=== PATIENT | female | born 1950 | race Caucasian/White ===

== ENCOUNTER 2022-11-11 12:31 | Emergency (ER) | payer MEDICARE, OTHER, SELFPAY ==
[2022-11-11 12:33] VITALS: BP 182/81; PULSE 89; RESP 18; TEMP 36.6; O2SAT 98; BMI 28.3
[2022-11-11 13:01] VITALS: BP 177/97; PULSE 81; O2SAT 98
--- NOTE | 2022-11-11 13:24 | HMH.EDGENADL ---
Discharge Plan Disposition Patient Disposition: Home, Self-Care Condition: Good Prescriptions Prescriptions: New bacitracin 500 unit/gram ointment 1 applic topical Q8H Qty: 30 0RF naproxen 500 mg tablet 500 mg PO Q12H PRN (Reason: pain) Qty: 20 0RF oxycodone 5 mg tablet 5 mg PO Q8H PRN (Reason: pain) Qty: 12 0RF Referrals Follow up/Referrals: Provider,Referral, MD [Primary Care Provider] - See instructions Activity Restrictions/Add. Instructions Additional Instructions/Restrictions: You were evaluated in the emergency department today for mcfarlane. Keep your wounds clean and dry. Apply bacitracin 3 times a day. Take your prescriptions as needed for pain. You may also take Tylenol. Do not drive or operate heavy machinery while taking narcotic pain medication. Follow-up outpatient with plastic surgery. They should be contacting you with an appointment to let you know where you need to go, as they have different locations. Their phone number is . If you do not hear from them or have difficulty getting in, follow-up with your primary care provider over the next week for a wound recheck. Return to the emergency department for any new or worsening symptoms. Clinical Impressions Clinical Impression: Burn of abdomen wall, Burn of flank Instructions Patient Instructions: DI for Mcfarlane Discharge ED Provider: Nathalie Thapa General Adult HPI General Chief complaint: Burn/Smoke Inhalation Stated complaint: AO10/4, mcfarlane on stomach Time Seen by Provider: 11/11/22 12:45 Mode of Arrival: Ambulatory Source of Information: Patient Limitations: No Limitations Description of Symptoms (Recalled from ER Triage Doc. by RN): Patient reports getting coffee at [employer] and the lid apparently wasn't on all the way so when she went to put it in her cup gray it spilled on her right side of her abdomen and buttock. Redness and blisters noted. History of Present Illness HPI narrative: This patient is a 72-year-old female presented to the emergency department for evaluation with concern for burn to the right lower abdomen/right hip/gluteal region. She reports that she had gotten hot coffee at [employer] and did not realize that the lid was not on. When she went to put it in her cup gray, it spilled on her right side. This happened a few hours prior to arrival. The pain has been significant. She has a small area of blistering. Given this, she decided to come in for evaluation. She was well prior to this. Related Data Previous Rx's Medication Instructions Recorded bacitracin 500 unit/gram topical 1 applic topical Q8H #30 grams 11/11/22 ointment naproxen 500 mg tablet 500 mg PO Q12H PRN pain #20 tabs 11/11/22 oxycodone 5 mg tablet 5 mg PO Q8H PRN pain #12 tabs 11/11/22 Allergies Allergy/AdvReac Type Severity Reaction Status Date / Time No Known Allergies Allergy Verified 11/11/22 12:46 [facility] Disclaimer: The information contained in this section may have been updated after the patient was seen, as this information can be updated by other users. Social History Smoking Status: Never smoker alcohol intake: never current occupational status: retired Travel in the last 8 weeks: None ROS Obtained: Yes All systems reviewed & no additional complaints except as documented Physical Exam General General appearance: alert and in no apparent distress Head Head exam: atraumatic and normocephalic Eye Eye exam: Present normal appearance, PERRL and EOMI ENT ENT exam: Present normal exam, normal oropharynx, mucous membranes moist and normal external ear exam Neck Neck exam: Present normal inspection, full ROM and trachea midline; Absent tenderness Chest Chest inspection: Present normal inspection and symmetric chest wall rise; Absent tenderness Respiratory Respiratory exam: Present normal lung sounds bilaterally; Absent respiratory
--- NOTE | 2022-11-11 13:36 | PC.NURSE ---
Checked on pt states no needs at this time,call light at bs
--- NOTE | 2022-11-11 13:43 | PC.NURSE ---
Dr. Thapa speaking with plastic surgery clinic for arranging f/u for pt.
[2022-11-11 14:03] VITALS: BP 159/78; PULSE 84; RESP 20; TEMP 36.6; O2SAT 97
--- NOTE | 2022-11-11 14:05 | PC.NURSE ---
Faxed pt info and dr note to [place]
== END 2022-11-11 14:07 | disposition home or self-care (01) ==
PROVIDERS: Emergency Provider Emergency Medicine
DX: T21.02XA Burn of unspecified degree of abdominal wall, initial encounter (principal); T21.05XA Burn of unspecified degree of buttock, initial encounter; X10.0XXA Contact with hot drinks, initial encounter
CPT/HCPCS: 90715; 96374; 96375; 99284

== ENCOUNTER 2024-07-27 10:33 | Emergency (ER) | payer MEDICARE, OTHER, SELFPAY ==
--- OUTSIDE RECORDS SUMMARY | 2006-03-07 20:00 | XMS_ITS | Continuity of Care Document ---
Author Organization [facility] Address [address] [place] [address] Phone Care Team Providers Care Energy Conservation Engineer Name Role Phone No Information Unavailable Unavailable Advance Directives Directive Yes / No Effective Date File Name No Information Encounters Encounter Description Practice Location Reason(s) For Visit Diagnoses Date Provider Providers Copied on Encounter [facility], [address] [place] [address], [place], [address], [place] tel:[phone] No Location No Information No Information Family History Family Member Type Diagnosis Age At Onset No Information Payers Payer name Insurance type Covered constitution party ID Authoriza tion(s) No Information Social History Type Description Quantity Date Captured Comments Sex Female Smoking Status No Information Chief Complaint And Reason For Visit No Information Reason For Referral Reason For Referral No Information History Of Present Illness Encounter Date Complaint History Of Prese nt Illness No Information Functional Status Date Functional Assessmen t No Information Instructions Date Instruction Additional Infor mation No Information Assessments Type Assessment Date No Information Patient Care Teams Name Effective Dates (start - stop) Status Members No Information
--- OUTSIDE RECORDS SUMMARY | 2024-06-28 06:31 | XMS_ITS | Continuity of Care Document ---
Author Organization [facility] Address [address] [place] [address] Phone Care Team Providers Care Power Line Installer Name Role Phone Viri Reilly MD Unavailable Unavailable Allergies, Adverse Reactions, Alerts Substance Reaction Status Criticality No Known Allergies Active No Inform ation Medications Medication Instructions Dosage Effective Dates (start - stop) Status Comments meloxicam 15 mg tablet take 1 tablet by oral route every day 15 MG - Active turmeric 400 mg capsule - Active Effexor XR 75 mg capsule,extended release take 1 capsule by oral route 2 times every day with food 75 MG - Active VITAMIN D3 (unknown strength) Not Available - Active multivitamin tablet take 1 capsule by oral route every day 1 capsule - Active Procedures Procedure Date Chemo IV Infusion 1 Hour Zoledronic Acid 1Mg X-Ray Exam Of Hand X-Ray Exam Of Hand X-Ray Of Foot X-Ray Of Foot DXA Bone Density Axial CBC Office Visit New, Level IV RBC Sed Rate Automated Urinalysis Advance Directives Directive Yes / No Effective Date File Name No Information Encounters Encounter Description Practice Location Reason(s) For Visit Diagnoses Date Provider Providers Copied on Encounter [facility], [address] [place], [place], [id number], tel:[phone] [facility] No Information [address] [facility] [facility] [place] [id number] , [place]. tel: [phone] [facility], [address] [place], [place], [id number], tel:[phone] DO NOT USE [facility] Age-related osteoporosis w/o current pathological fracture Sep-0 2 [address] [facility] [place], [id number] , [place]. tel: [phone] Referring Provider: Nura Thomas, [address] [facility] [address], [place], [address]. tel:[phone] Office Visit New, Level IV [facility], [address] [place], [place], [id number], [place] tel:[phone] DO NOT USE [facility] Body mass index (BMI) 26.0-26.9, adultPain in left handPain in right handPain in left footPain in right footAge-relat ed osteoporosis w/o current pathological fractureOther specified abnormal immunological findings in serumOther longterm (current) drug therapyLong term (current) use of non-steroidal anti-inflamma tories (NSAID)Primar y generalized (osteo)arthri tisVitamin D deficiency, unspecified 2 Fidel Garg . [address] [facility] [place], [id number] , [place]. tel: [phone] Referring Provider: Nura Thomas, [address] [facility] [address], [place], [address]. tel:[phone] Family History Family Member Type Diagnosis Age At Onset Problem No family history of Arthrit is Payers Payer name Insurance type Covered democrat ID Authorstaceya tidonnie(s) Medicare Part B ALEX [id number] [facility] [id number] Social History Type Description Quantity Date Captured Comments Alcohol Use Details Unknown Caffeine Use Details Unknown Tobacco Use Status No Information Smoking Status No Information Sex Female Chief Complaint And Reason For Visit No Information Reason For Referral Reason For Referral No Information Plan Of Treatment Date Type Action Status Goal Lifestyle educat ion regarding diet completed Future Order: Radiology Order Fo ot X-ray; Limited (2 views) ([id number]), Ordered on: Ordered Future Order: Radiology Order [place] X-ray; Limited (2 views) ([id number]), Ordered on: Ordered Future Order: Radiology Order Atif ne density study (by DEXA) ([id number]), Ordered on: Ordered History Of Present Illness Encounter Date Complaint History Of Prese nt Illness No Information Functional Status Date Functional Assessmen t No Information Instructions Date Instruction Additional Infor mation Lifestyle education regarding di et Related to Body mass index [BMI] 26.0-26.9, adult Assessments Type Assessment Date No Information Patient Care Teams Name Effective Dates (start - stop) Status Members No Information
[2024-07-27] VITALS (7 sets, daily range): BP systolic 135–191; BP diastolic 67–102; PULSE 76–96; RESP 11–19; TEMP 36.9; O2SAT 95–97; BMI 28.3
--- NOTE | 2024-07-27 10:34 | ECG_ITS ---
APPROVED REPORT Exam: Resting ECG HR:94 bpm ECG Measurements Heart Rate 94 AXES SD 174 P 33 QRSd 83 QRS -15 QT 322 T 64 QTc 374 Conclusion SINUS RHYTHM POSSIBLE LEFT ATRIAL ENLARGEMENT [-0.1mV P-WAVE IN V1/V2] BORDERLINE ECG UNCONFIRMED REPORT Electronically signed by : Pedro Luis Garrison, 07/27/2024 15:39:03
--- NOTE | 2024-07-27 10:38 | XR_ITS ---
FINAL REPORT CLINICAL HISTORY: Shortness of breath and chest pain COMPARISON: None FINDINGS: The heart size is normal. The mediastinum is normal. There is no focal infiltrate or edema. There are no pleural effusions. There is no pneumothorax. There is no osseous abnormality. IMPRESSION: No acute cardiopulmonary process Reviewed, Interpreted and Dictated by Reinier Joy MD Transcribed by Jeannine Nguyen Authenticated and [facility]
[2024-07-27 10:51] LABS: Basophils % 0.1 % (0.1-2.0); Eosinophils # 0.1 Kmm3 (0.0-0.4); Eosinophils % 0.6 % (0.1-12.0); Hemoglobin 14.5 g/dL (12.2-16.2); Immature Granulocytes # 0.03 10^3uL; Immature Granulocytes % 0.3 %; Lymphocytes # 1.8 K/mm3 (0.7-4.5); Lymphocytes % 18.5 % (10-50); Mean Corpuscular Hemoglobin 29.4 pg (27.0-31.2); Mean Corpuscular Volume 89.1 fl (81-99); Monocytes # 0.8 K/mm3 (0.1-1.0); Monocytes % 7.9 % (1.7-9.3); Neutrophils # 7.1 K/mm3 (1.8-7.8); Neutrophils % 72.6 % (37.0-80.0); Nucleated Red Blood Cells # 0 10^3/uL; Nucleated Red Blood Cells % 0 %; Platelet Count 205 K/mm3 (142-424); Red Blood Count 4.94 M/mm3 (4.20-5.40); Red Cell Distribution Width-SD 42.4 fL; White Blood Count 9.7 K/mm3 (4.8-10.8)
--- NOTE | 2024-07-27 10:54 | CT_ITS ---
FINAL REPORT TECHNIQUE: After the administration of intravenous contrast, axial images were obtained through the abdomen and pelvis by computed tomography. The study was performed with techniques to keep radiation dose as low as reasonably achievable, (ALARA). Individual dose reduction techniques using automated exposure control or adjustment of mA and/or kV according to the patient's size were employed. CLINICAL HISTORY: LLQ pain, constipation, nausea pt hx of diverticulitis COMPARISON: None FINDINGS: Abdomen: There is a benign-appearing cyst in the liver, measuring 9 mm in size. A few other small low densities are present in the liver, also likely cysts. The liver parenchyma is otherwise homogeneous and mildly enlarged, measuring 20 cm in the craniocaudal dimension. The gallbladder is present. The spleen, pancreas, adrenals and kidneys appear unremarkable. The aorta is normal in caliber. There is no free fluid or adenopathy. Pelvis: The appendix is not identified. There is a segment of sigmoid colon which contains marked mucosal thickening in the pelvis, with surrounding inflammatory reaction, consistent with acute diverticulitis or colitis. No evidence of an abscess is seen. The left ovary appears to contact the inflamed colon. The urinary bladder is unremarkable. There is no adenopathy. A trace amount of is present in the pelvis. IMPRESSION: Marked mucosal thickening in the mid sigmoid colon with surrounding inflammatory reaction, consistent with acute diverticulitis or colitis. No focal abscess is seen. Mild hepatomegaly. Reviewed, Interpreted and Dictated by Reinier Joy MD Transcribed by Jessie Melvin Authenticated and [facility]
[2024-07-27 10:58] LABS: Chloride 105 mmol/L (98-107); INR 0.98 (0.9-1.1); Prothrombin Time 10.9 seconds (10.1-12.5)
--- NOTE | 2024-07-27 10:58 | CT_ITS ---
FINAL REPORT TECHNIQUE: The patient was injected with IV contrast. Axial images were obtained through the chest in a PE protocol. 3-D reconstruction images were also performed. Individualized dose reduction techniques using automated exposure control or adjustment of the MA and/or KV according to patient's size were employed. CLINICAL HISTORY: CP, recent flight cp started wednesday, midsternal cp COMPARISON: None FINDINGS: Mediastinal vasculature is adequately opacified. No pulmonary artery filling defects are identified to suggest PE. There is no aortic dissection. The ascending thoracic aorta measures 3.8 cm in diameter. There is no axillary adenopathy. There is no hilar or mediastinal adenopathy. The heart size is normal. There is no pericardial or pleural effusion. Limited images of the upper abdomen are unremarkable. Bilateral bulla are present in the apices, measuring up to 3.7 cm in diameter. There are mild ground glass opacities noted bilaterally, that may represent mild edema or pneumonitis. IMPRESSION: No pulmonary embolus or dissection. Bullous changes are present, along with mild ground glass opacities bilaterally, that may represent mild edema or pneumonitis. Reviewed, Interpreted and Dictated by Reinier Joy MD Transcribed by Jessie Melvin Authenticated and [facility]
[2024-07-27 10:59] LABS: Albumin Level 4.5 g/dl (3.5-5.0); Potassium 3.7 mmoL/L (3.5-5.1); Sodium 139 mmol/L (136-145)
[2024-07-27 11:01] LABS: Alanine Aminotransferase 21 U/L (12-78); Alkaline Phosphatase 100 U/L (38-126); Anion Gap 11.7 mEq/L (5-15); Aspartate Amino Transferase 30 U/L (14-36); Bilirubin,Total 1.1 mg/dl (0.2-1.3); Blood Urea Nitrogen 9 mg/dl (7-17); Carbon Dioxide 26 mmol/L (22.0-30.0); Creatinine Clearance Estimated 58 mL/min (50-200); Estimated Glomerular Filt Rate 82 ml/min (>60); GFR (African American) 100 ML/MIN (>60)
[2024-07-27 11:02] LABS: Albumin/Globulin Ratio 1.2 (1.1-1.8); Calcium 9.3 mg/dl (8.4-10.2); Globulin 3.7 g/dL (1.3-3.2); Glucose 113 mg/dl (74-100); Lipase 43 U/L (23-300); Magnesium 1.9 mg/dl (1.6-2.3); Total Protein,Serum 8.2 g/dl (6.3-8.2)
--- NOTE | 2024-07-27 11:03 | ED_ITS ---
<Statement entered by Lisa Garrison MD - 07/27/24 15:34> I was consulted by the YAMEL, and we discussed the complexity of the problems being addressed. I approved the treatment and management plan for this patient's care in the emergency department, thus performing a substantive portion of the medical decision making. Lisa Garrison MD, CRISELDA, FACEP Discharge Plan Disposition Patient Disposition: Home, Self-Care Condition: Good Prescriptions Prescriptions: New amoxicillin-pot clavulanate 875-125 mg tablet 1 tab PO BID 5 Days Qty: 10 0RF ondansetron 4 mg tablet,disintegrating 4 mg PO Q6H PRN (Reason: nausea and vomiting) Qty: 14 0RF No Action bacitracin 500 unit/gram ointment 1 applic topical Q8H Qty: 30 0RF naproxen 500 mg tablet 500 mg PO Q12H PRN (Reason: pain) Qty: 20 0RF oxycodone 5 mg tablet 5 mg PO Q8H PRN (Reason: pain) Qty: 12 0RF Referrals Follow up/Referrals: Provider,Referral, [Primary Care Provider, Medical] - See instructions Activity Restrictions/Add. Instructions Additional Instructions/Restrictions: Please return to the emergency department with any worsening signs or symptoms, please take your medication as prescribed, recommend progress diet as tolerated, lease follow-up with your family doctor. Clinical Impressions Clinical Impression: Diverticulitis Instructions Patient Instructions: DI for Diverticulitis Print Language Print Language: Cook Islander Discharge ED Provider: Lisa Garrison [facility] General Chief Complaint: Chest Pain Stated Complaint: Chest Pain Time Seen by Provider: 07/27/24 10:36 Mode of Arrival: Ambulatory Source of Information: Patient Description of Symptoms (Recalled from ER Triage Doc. by RN): pt presents to the ED with chest pain. pt states the pain is stabbing in the center of her chest. The pain started Wednesday but pt reports it has gotten a little better today. The pain gets worse with breathing and after she eats. Pt has taken over the counter medications but has had no relief. pt states that she's had a lot going on lately and is anxious. pt hx of diverticulitis. pt has lower left abdominal pain. pt states she feels like is constipated. History of Present Illness HPI narrative: 73-year-old female presents to the emergency department with a 2-day history of substernal chest pain with some radiation to the left shoulder, now with radiation down into the left side of the abdomen, somewhat worse with movement. When the pain for started it was a 9 out of 10 , like a 4 out of 10 , she utilized Tums , with some relief to her symptomatology, endorses nausea and constipation yesterday as last bowel movement was actually 2 days ago, has remote history of diverticulosis, denies any fever chills cough congestion, denies any shortness of breath currently, when the pain does hit her she does endorse some shortness of breath, patient states that she is quite anxious, she denies any diarrhea, melena, hematochezia hemoptysis, hematemesis, or hematuria, denies vomiting, denies any urinary type symptomatology. Patient has other past medical history consistent with hyperlipidemia, anxiety/depression, initial triage vitals are unremarkable, she denies any history of tobacco use, admits to occasional alcohol use, denies any other drug use. Related Data Previous Rx's ?Medication ?Instructions ?Recorded bacitracin 500 unit/gram topical 1 applic topical Q8H #30 grams 11/11/22 ointment naproxen 500 mg tablet 500 mg PO Q12H PRN pain #20 tabs 11/11/22 oxycodone 5 mg tablet 5 mg PO Q8H PRN pain #12 tab s 11/11/22 amoxicillin 875 mg-potassium 1 tab PO BID 5 days #10 t abs 07/27/24 clavulanate 125 mg tablet ondansetron 4 mg disintegrating 4 mg PO Q6H PRN nausea and 07/27/24 tablet vomiting #14 tabs Allergies Allergy/AdvReac Type Severity Reaction Status Date / Time No Known Allergies Allergy Verified 11/11/22 12:46 [facility] Disclaimer: The information contained in this section may have been updated after the patient was seen, as this information can be updated by other users. Social History Smoking Status: Never smoker alcohol intake: never current occupational status: retired Travel in the last 8 weeks?: None Have you lived/traveled outside US in past 30 days?: No Contact w/someone who lives/traveled outside US past 30 days?: No Exposure to someone with infectious disease in past 14 days?: No Do you have a fever (greater than 100.4 F or 38 C)?: No Have you tested positive for COVID-19?: No Exposed to someone with COVID-19 in past 14 days?: No Do you have a sore throat?: No Do you have a cough?: No Do you have any weakness?: No Do you have any diarrhea?: No Are you experiencing any unusual bleeding?: No Do you have any muscle aches/pain?: No Do you have any abdominal pain?: No Are you experiencing loss of taste or smell?: No ROS Obtained: Yes All systems reviewed & no additional complaints except as documented Physical Exam General General appearance: alert and in no apparent distress Head Head exam: atraumatic and normocephalic Eye Eye exam: Present PERRL and EOMI ENT ENT exam: Present mucous membranes moist Neck Neck exam: Present normal inspection Chest Chest inspection: Present normal inspection and symmetric chest wall rise Respiratory Respiratory exam: Present normal lung sounds bilaterally; Absent respiratory distress, wheezes or stridor Cardiovascular Cardiovascular exam: Present regular rate and normal rhythm Abdominal Exam Abdominal exam: Present soft and tenderness Abdominal tenderness: Present LLQ, epigastrium and mild Extremities Exam Extremities exam: Present normal inspection Neurological Exam Neurological exam: Present alert and oriented X3 Psychiatric Psychiatric exam: Present normal affect Skin Skin exam: Present warm and dry HEART Score HEART Score HEART Score assessment performed?: Yes HEART Score: 3 Critical Care Critical Care Time Critical Care Time: No Medical Decision Making Medical Records Medical records reviewed: Yes I reviewed the patient's medical records. Gary Inquiry Pt receiving controlled substance: No Gary was queried for this patient: No Vital Signs Vital Signs: 07/27/24 10:41 07/27/24 10:50 07/27/24 10:51 Temperature 98.4 F 98.4 F Temperature Source Oral Oral Pulse Rate 96 H 96 H Pulse Rate [Right] 96 H Respiratory Rate 19 19 Blood Pressure 191/102 H Blood Pressure [Right Arm] 191/102 H Blood Pressure Mean [Right Arm] 131 Blood Pressure Source Automatic Cuff Blood Pressure Source [Right Arm] Automatic Cuff Blood Pressure Position Supine Blood Pressure Position [Right Arm] Supine 02 Sat by Pulse Oximetry 97 97 Oxygen Delivery Method Room Air Room Air 07/27/24 11:01 07/27/24 12:01 Temperature Temperature Source Pulse Rate 90 80 Pulse Rate [Right] Respiratory Rate 11 L 12 Blood Pressure 139/67 135/76 Blood Pressure [Right Arm] Blood Pressure Mean [Right Arm] Blood Pressure Source Blood Pressure Source [Right Arm] Blood Pressure Position Blood Pressure Position [Right Arm] 02 Sat by Pulse Oximetry 95 97 Oxygen Delivery Method Room Air Lab Data Lab results reviewed: Yes I reviewed the patient's lab results. Labs: Lab Results 07/27/24 10:40: WBC 9.7, RBC 4.94, Hgb 14.5, Hct 44.0, MCV 89.1, MCH 29.4, MCHC 33.0, RDW 13.0, Plt Count 205, MPV 10.0, Neut % (Auto) 72.6, Lymph % (Auto) 18.5, [place] % (Auto) 7.9, Eos % (Auto) 0.6, Baso % (Auto) 0.1, Neut # (Auto) 7.1, Lymph # (Auto) 1.8, [place] # (Auto) 0.8, Eos # (Auto) 0.1, Baso # (Auto) 0.0, PT 10.9, INR 0.98, D-Dimer 0.98 H, Sodium 139, Potassium 3.7, Chloride 105, Carbon Dioxide 26, Anion Gap 11.7, BUN 9, Creatinine 0.70, Estimated Creat Clear 58, Estimated GFR 82, Est GFR ( Amer) 100, Glucose 113 H, Calcium 9.3, Magnesium 1.9, Total Bilirubin 1.1, AST 30, ALT 21, Alkaline Phosphatase 100, Troponin I < 0.01, NT-Pro-B Natriuret Pep 65.4, Total Protein 8.2, Albumin 4.5, Globulin 3.7 H, Albumin/Globulin Ratio 1.2, Lipase 43, HCV Ab JUAN M w/Rflx PCR Qn Negative, HIV Ag/Ab Combo Qual Negative 07/27/24 11:01: Lactate 0.9 07/27/24 10:40 07/27/24 10:40 Response Orders (Tests/Meds): ED MEDICATIONS Discontinued Medications Generic Name Dose Route Start Last Admin Trade Name Freq PRN Reason Stop Dose Admin Iopamidol 70 ml 07/27/24 11:11 07/27/24 11:14 Iopamidol-370 (76%);100ml Bottle IV 07/27/24 11:12 70 ml ONCE ONE Administration Morphine Sulfate 4 mg 07/27/24 11:01 07/27/24 11:10 Morphine 4mg/Ml Syringe IV 07/27/24 11:02 Not Given ONCE ONE Ondansetron HCl 4 mg 07/27/24 11:01 07/27/24 11:07 Ondansetron 4mg/2ml Vial IV 07/27/24 11:02 4 mg ONCE ONE Administration Sodium Chloride 10 ml 07/27/24 11:11 07/27/24 11:14 Sodium Chloride 0.9% 10ml Syr (Rad Only) IV 07/27/24 11:12 10 ml ONCE ONE Administration Sodium Chloride 50 ml 07/27/24 11:11 07/27/24 11:14 0.9 % Sodium Chloride 50 Ml Vial IV 07/27/24 11:12 50 ml ONCE ONE Administration ORDERS Category Date Time Status CT abdomen pelvis w con Stat Cat Scan 07/27/24 10:[address] angio chest PE protocol Stat Cat Scan 07/27/24 10:58 Completed XR chest portable Stat Exams 07/27/24 10:38 Completed Complete Blood Count Auto Diff Stat Lab 07/27/24 10:40 Completed Comprehensive Metabolic Panel Stat Lab 07/27/24 10:40 Completed D-Dimer Stat Lab 07/27/24 10:40 Completed HIV Combo Stat Lab 07/27/24 10:40 Completed Hepatitis C Ab Qual. W/ RFX Stat Lab 07/27/24 10:40 Completed Lactic Acid Stat Lab 07/27/24 11:01 Completed Lipase Stat Lab 07/27/24 10:40 Completed Magnesium Stat Lab 07/27/24 10:40 Completed NT Pro Brain Natriuretic Pep. Stat Lab 07/27/24 10:40 Completed PT INR [Prothrombin Time INR] Stat Lab 07/27/24 10:40 Completed Troponin I Q3H Lab 07/27/24 13:45 Ordered Troponin I Q3H Lab 07/27/24 16:45 Ordered Troponin I Stat Lab 07/27/24 10:40 Completed Urinalysis and Microscopic Stat Lab 07/27/24 11:33 Received MDM Narrative Medical Decision Narrative: 73-year-old female presents to the emergency department with chest pain, abdominal pain nausea and constipation, for 2 days, differential diagnosis include but not limited to ACS, PE, pneumothorax, pneumonia, costochondritis, anxiety reaction, panic attack, gastritis, GERD, diverticulitis, bowel obstruction, ileitis, colitis, pancreatitis among others. I discussed patient case with attending physician Dr. Garrison Will obtain basic laboratory studies, full cardiac workup to include troponin, proBNP, EKG, lipase, lactate, urinalysis, CTA chest, CT abdomen pelvis with contrast, will give 4 mg IV morphine and 4 mg IV Zofran for pain and nausea. CBC is unremarkable Coags within normal limits CMP is unremarkable, lipase within normal limits I reviewed the patient's EKG along with the attending physician, NSR at 94 bpm [place] interval within normals, QT interval within normal there is no STEMI. D-dimer is 0.98, already obtain a CTA to rule out PE. Initial troponin is within normal limits at 0.01, proBNP within normal limit. I reviewed the patient's chest x-ray along the corresponding radiologic report, no acute cardiopulmonary process I reviewed the patient's CTA chest with without contrast PE protocol, no pulmonary embolism or dissection, bullous changes are present along with mild groundglass opacities bilaterally that may represent mild edema or pneumonitis. I reviewed the patient's CT abdomen pelvis with contrast on the corresponding radiologic report, marked mucosal thickening of the mid sigmoid colon with surrounding inflammatory reaction consistent with acute diverticulitis or colitis no focal abscess seen, mild hepatomegaly. Will prescribe a 875 mg p.o. Augmentin for diverticulitis every 8 for 5 days. Reexamination of the patient at approximately 12:30 PM, patient is feeling better and has improved symptomatology after medications, patient has no leukocytosis, uncomplicated diverticulitis, the mild edema versus groundglass opacities versus pneumonitis in the patient's chest, is unremarkable, she is not having any shortness of air, currently, has remained hemodynamically stable at her time in the emergency department. Patient was given strict ED return precautions, patient will follow-up PCP in the upcoming days, patient to take all medication as prescribed. Patient voiced understanding with the current treatment plan/discharge plan.
--- OUTSIDE RECORDS SUMMARY | 2024-07-27 11:06 | XMS_ITS | Patient Health Record ---
Author Organization [facility] Address [address] [place] [address] Care Team Providers Care Vocational Evaluator Name Role Phone JUDAH OWENS Unavailable [phone] Allergies No Known Allergies Reason For Referral No Information Medications Medication SIG (Take, Route, Fr equency, Duration) Notes Start Date End Date Status Venlafaxine HCl Acti ve Meloxicam Active Social History Tobacco Use: Social History Observation Description Date Details (start date - stop date) Never Smoker NA - NA Tobacco Use/Smoking Question Answer Notes Tobacco use: nonsmoker Plan Of Treatment No Information Insurance Providers Payer Name Payer Address Payer Phone Subscriber Number Group Number Insured Name Patient Relationship to Insured Coverage Start Date Coverage End Date MEDICARE PART B [address] [address] [place] [address] [id number] PAULA PEREYRA Self - patient is the insured [address] [address] [phone] [id number] PAULA PEREYRA Self - patient is the insured Medical (General) History Medical History History ICD Code Rheumatoid arthritis Bipolar illness/depression Surgical History Surgery Date(Month/Year) Hysterectomy
[2024-07-27] MEDS: ONDANSETRON 4MG/2ML VIAL 4 MG IV (11:07)
[2024-07-27 11:09] LABS: D-Dimer 0.98 ug/mL (0.0-0.5)
[2024-07-27 11:11] LABS: NT Pro Brain Natriuretic Pep. 65.4 pg/mL (0-125)
[2024-07-27 11:14] LABS: Troponin I < 0.01 ng/ml (0.00-0.034)
[2024-07-27] MEDS: 0.9 % SODIUM CHLORIDE 50 ML VIAL IV (11:14)
[2024-07-27] MEDS: IOPAMIDOL-370 (76%);100ML BOTTLE 70 ML IV (11:14)
[2024-07-27] MEDS: SODIUM CHLORIDE 0.9% 10ML SYR (RAD ONLY) 10 ML IV (11:14)
[2024-07-27 11:23] LABS: Lactic Acid 0.9 mmol/L (0.7-2.1)
[2024-07-27 11:40] LABS: Microscopic, Urine URINE MICROSCOPIC (MICROSCOPIC)
[2024-07-27 11:41] LABS: Appearance,Urine CLEAR (Clear); Blood, Urine 2+ (Negative); Color,Urine YELLOW (Yellow); Glucose,Urine (UA) Negative (Negative); Ketones,Urine 2+ (Negative); Leukocyte Esterase,Urine Negative (Negative); Nitrate,Urine Negative (Negative); Protein,Urine TRACE (Negative); Specific Gravity, Urine 1.025 (1.005-1.030); Urobilinogen,Urine 0.2 EU/dl (0.2)
[2024-07-27 12:05] LABS: HIV Combo NEGATIVE (Negative)
[2024-07-27 12:13] LABS: Hepatitis C Ab Qual. W/ RFX NEGATIVE (Negative)
[2024-07-27 12:37] LABS: Bilirubin,Urine 1+ (Negative)
[2024-07-27 12:40] LABS: Bacteria,Urine Trace /lpf
== END 2024-07-27 12:42 | disposition home or self-care (01) ==
PROVIDERS: Physician Assistant; Emergency Provider Student in an Organized Health Care Education/Training Program
DX: R07.2 Precordial pain (principal); R10.32 Left lower quadrant pain; K57.92 Diverticulitis of intestine, part unspecified, without perforation or abscess without bleeding
CPT/HCPCS: 71045; 71275; 74177; 80053; 80074; 81001; 83605; 83690; 83735; 83880; 84484; 85025; 85378; 85610; 87389; 93005; 96374; 99285; J2270; J2405; Q9967